=== PATIENT | female | born 1990 | race Caucasian/White ===

== ENCOUNTER 2018-01-06 20:01 | Emergency (ER) | payer OTHER ==
[~2018-01-06] VITALS: Ht 157.5 cm; Wt 60.8 kg
--- NOTE | 2018-01-06 20:40 | NUR ---
DR HODGES INTO EVAL PATIENT
--- NOTE | 2018-01-06 20:49 | NUR ---
Patient discharged to home in stable conditon. Written and verbal after care instructions given. Patient verbalizes understanding of instructions. WALKED OUT OF ER WITH NO DISTRESS NOTED
== END 2018-01-06 20:50 | disposition home or self-care (01) ==
LOC: ER 20:02
DX: O26.892 Other specified pregnancy related conditions, second trimester (principal); R51 Headache; M54.2 Cervicalgia; Z3A.00 Weeks of gestation of pregnancy not specified
CPT/HCPCS: 99281; A4663